=== PATIENT | male | born 1960 | race Caucasian/White ===

== ENCOUNTER 2024-03-10 13:14 | Outpatient (CLI) | payer BC, SELFPAY ==
--- NOTE | ~2024-03-10 | PE_ITS ---
EXAMINATION: PET_PETPSMAST_PT DATE: 03/10/2024 15:56 INDICATION: Prostate cancer TECHNIQUE: 4.935 mCi of Illucix Ga-[id number]) was administered i.v. Low dose computed eva graphy (CT) images were acquired from the base of the brain to the base of the brain to the proximal thighs for attenuation correction and anatomic localization. Positron emission tomography (PET) image s were acquired in the same distribution beginning 90 minutes after injection. Images including fused PET/CT images were reconstructed in axial, coronal, and sagittal planes. Automated exposure control technique was employed. The dose-length product was 1195.84mGy-cm. COMPARISON: None FINDINGS: Head/neck: Typical pattern of symmetric physiologic increased activity in the lacrimal, parotid and submandibula r glands as well as along the mucosa of the nasal and oral cavities, pharynx and hypopharynx. No path ologically enlarged cervical lymphadenopathy or suspicious foci of increased uptake in the visualized head or neck. Chest: Mild emphysema. Mild atelectasis at the bilateral lower lobes. No pneumonia, suspicious pulmonary nod ules or pleural effusion. Heart size is normal. No pericardial effusion. Thoracic aorta is normal in caliber. Small sliding type hernia. No pathologically enlarged or PSMA avid thoracic lymphadenopathy. Abdomen/pelvis/proximal thighs: Physiologic renal accumulation and excretion of activity in the kidneys, bladder and along portions o f ureters. Photopenic defects associated with a couple low-attenuation right renal cyst is larger bhavana suring 2.1 cm. There is asymmetric mild uptake in the left peripheral zone of the mildly enlarged pro state with maximum SUV of 4.8. Normal degree and slightly heterogenous pattern of increased uptake th roughout the liver and spleen without radiologic correlate or dominant PSMA avid lesion. The gallblad mary, pancreas and bilateral adrenal glands are normal. Moderate uptake scattered throughout the bowel s with typical duodenal and proximal jejunal predominance and without radiologic correlate, also like ly physiologic. There is mild to moderate colonic diverticulosis with a sigmoid predominance. There is no adjacent inflammatory change to suggest diverticulitis. No other abnormal foci of increased upt ly or pathologically enlarged lymphadenopathy in the abdomen, pelvis or proximal thighs. Musculoskeletal: No suspicious lytic, blastic or PSMA abdomen bone lesions. IMPRESSION: 1. Small focus of mild uptake at the left peripheral zone of the prostate consistent with primary pro state cancer. No evident metastatic disease. Reviewed, dictated and finalized at location A. IMPRESSION: 1. Small focus of mild uptake at the left peripheral zone of the prostate consi stent with primary prostate cancer. No evident metastatic disease.
== END 2024-03-10 13:15 | disposition home or self-care (01) ==
PROVIDERS: PCP Family Medicine; Visit Provider Urology
DX: C80.1 Malignant (primary) neoplasm, unspecified (principal); Z19.1 Hormone sensitive malignancy status
CPT/HCPCS: 78815; A9596